=== PATIENT | male | born 1945 | race Caucasian/White ===

== ENCOUNTER → 2020-01-25 | Outpatient (CLI) | payer OTHER | LOC: SJCVC 14:56 | PROVIDERS: ATTEND Internal Medicine Cardiovascular Disease | DX: I25.10 Atherosclerotic heart disease of native coronary artery without angina pectoris (principal); I10 Essential (primary) hypertension; E78.00 Pure hypercholesterolemia, unspecified; I65.23 Occlusion and stenosis of bilateral carotid arteries; Z79.82 Long term (current) use of aspirin; Z79.899 Other long term (current) drug therapy; Z82.49 Family history of ischemic heart disease and other diseases of the circulatory system; Z87.891 Personal history of nicotine dependence ==

== ENCOUNTER → 2020-05-24 | Outpatient (CLI) | payer OTHER | LOC: SJCVCIMAG 09:21 | PROVIDERS: ATTEND Internal Medicine Cardiovascular Disease | DX: I08.8 Other rheumatic multiple valve diseases (principal); I25.10 Atherosclerotic heart disease of native coronary artery without angina pectoris; I10 Essential (primary) hypertension; E78.00 Pure hypercholesterolemia, unspecified; Z95.5 Presence of coronary angioplasty implant and graft; Z79.82 Long term (current) use of aspirin; Z79.899 Other long term (current) drug therapy; Z87.891 Personal history of nicotine dependence ==

== ENCOUNTER → 2021-01-02 | Outpatient (CLI) | payer OTHER | LOC: SJCVC 13:51 | PROVIDERS: ATTEND Internal Medicine Cardiovascular Disease | DX: R00.1 Bradycardia, unspecified (principal); I25.10 Atherosclerotic heart disease of native coronary artery without angina pectoris; I10 Essential (primary) hypertension; E78.00 Pure hypercholesterolemia, unspecified; I65.23 Occlusion and stenosis of bilateral carotid arteries; Z95.5 Presence of coronary angioplasty implant and graft; Z87.891 Personal history of nicotine dependence; Z72.89 Other problems related to lifestyle; Z79.82 Long term (current) use of aspirin; Z79.899 Other long term (current) drug therapy; Z88.0 Allergy status to penicillin ==

== ENCOUNTER 2021-02-02 14:45 | Emergency (ER) | payer OTHER ==
[~2021-02-02] VITALS: Ht 182.9 cm; Wt 79.4 kg
--- NOTE | ~2021-02-02 | EMS ---
[facility] [address] [place] [address] EMS Patient Care Report Name: OMERO VERA Room #: PRE M.R.#: [id number] Admission: Attend Phys: Discharge: Date of : 45 Report #: [id number] THIS REPORT FOR: //name// Report Transmitted: 02/02/2021 14:38 EMS Care Summary [place], [place]/[facility] Incident [id number] @ 02/02/2021 14:02 Incident Location [address] [place] [address] Patient OMERO VERA Male, 75 Years 1945 Patient Address [address] [place] [address] Patient History Cardiac - Stent, Patient Allergies Penicillin allergy, Patient Medications Rosuvastatin, Aspirin, Losartan, Bystolic, Chief Complaint Syncope Disposition Transported No Lights/[place] Dispatch Reason Unconscious/Fainting Transported To [facility] Narrative M36 dispatched on an unconscious. M36 arrived to golf driving range to find PT seated in chair with P45 at PT side. PT stated getting dizzy and passing out as chief complaint. PT stated he "felt dizzy, then sat down for a while. When I stood up I passed out and fell down." PT denied neck and back pain. PT assisted [facility] [address] [place] [address] EMS Patient Care Report Name: OMERO VERA Room #: PRE [facility].Sergio.#: [id number] Admission: Attend Phys: Discharge: Date of : 45 Report #: [id number] to stand and pivot to stretcher. PT alert and oriented. PT stated dehydration and feeling dizzy as additional complaints. PT secured with seatbelts. PT denied N/V/D, fever and shortness of breath. PT spoke in complete sentences without increased work of breathing. PT denied chest pain. PT vitals monitored in route including traffic monitor specialist. PT report given. PT scooted self to hospital bed. PT care and belongings transferred to ER staff at [facility] without incident. M36 placed back in service. Initial Vitals @14:25P: 62,R: 18,BP: 94/50,Pain: 110,GCS: 15,CO: 2,SpO2: 94,Revised Trauma: 12, @14:33P: 58,R: 16,BP: 88/48,Pain: 110,GCS: 15,CO: 2,SpO2: 94,Revised Trauma: 11,ME Suspected: false @14:42P: 48,R: 14,BP: 90/54,Pain: 1/10,GCS: 15,SpO2: 96,Revised Trauma: 12,ME Suspected: false @14:17P: 58,R: 18,BP: 70/50,Pain: 1/10,GCS: 15,Glucose: 138,CO: 3,SpO2: 97,Revised Trauma: 10,ME Suspected: false Assessments @14:33MENTAL:Person Oriented,Event Oriented,Place Oriented,Time Oriented,SKIN:Diaphoresis,Pale,HEENT:Head/Face: Swelling,LUNG SOUNDS:ABDOMEN:PELVIS//GI:EXTREMITIES:PULSE:Radial: 2+ Normal,NEURO:@14:42MENTAL:Person Oriented,Event Oriented,Time Oriented,Place Oriented,SKIN:Diaphoresis,HEENT:LUNG SOUNDS:ABDOMEN:PELVIS//GI:EXTREMITIES:PULSE:NEURO: Impression Syncope / Fainting Procedures @14:32ALS AssessmentResponse: UnchangedSucceeded@14:32Normal Saline (.9% NaCl) 510cc (20 ga) Site: Forearm-RightResponse: ImprovedSucceeded Timeline 14:01,Call Received 14:01,Dispatch Notified 14:02,Dispatched 14:02,En Route 14:12,On Scene 14:14,At Patient 14:17,BP: 70/50 M,PULSE: 58,RR: 18 R,SPO2: 97 Ox,ETCO2: ,B,PAIN: 1,GCS: 15, 14:25,BP: 94/50 M,PULSE: 62,RR: 18 R,SPO2: 94 Ox,ETCO2: ,BG: ,PAIN: 1,GCS: 15, 14:31,Depart Scene 14:32,ALS Assessment,Response: UnchangedSucceeded, [facility] [address] [place] [address] EMS Patient Care Report Name: OMERO VERA Room #: [facility]..#: [id number] Admission: Attend Phys: Discharge: Date of : 45 Report #: [id number] 14:32,Normal Saline (.9% NaCl) 510cc 20 ga Site: Forearm-Right,Response: ImprovedSucceeded, 14:33,BP: 88/48 M,PULSE: 58,RR: 16 R,SPO2: 94 Ox,ETCO2: ,BG: ,PAIN: 1,GCS: 15, 14:42,BP: 90/54 M,PULSE: 48,RR: 14 R,SPO2: 96 Ox,ETCO2: ,BG: ,PAIN: 1,GCS: 15, 14:52,At Destination 14:53,Call Closed Disclaimer v1.1 Copyright 2020 [employer] This EMS Care Summary contains data elements from the applicable legal record (which may be displayed differently). It is designed to provide pertinent information for the following purposes: continuity of care, clinical quality, and state data reporting. The complete legal record is available to ED staff and administrators of the receiving hospital in [employer] Patient Tracker. All data is provided "as is."
[2021-02-02] MEDS ORDERED: ASPIRIN EC81 M1 PO (14:55)
[2021-02-02] MEDS ORDERED: COZAAR 50 MG TA50 MG PO (14:55)
[2021-02-02] MEDS ORDERED: ROSUVASTATIN CA10 MG PO (14:56)
[2021-02-02] MEDS ORDERED: BYSTOLIC 5 MG5 MG PO (14:56)
[2021-02-02 15:11] LABS: ABSOLUTE NEUTROPHILS 5.9 thou/uL (1.4-8.2); BASOPHILS 0.3 % (0.0-2.0); EOSINOPHILS 0.7 % (0.0-3.0); HEMATOCRIT 41.5 % (42.0-52.0); HEMOGLOBIN 13.6 gm/dL (14.0-18.0); LYMPHOCYTES 17.6 % (24.0-44.0); MCH 29.6 pg (26.0-34.0); MCHC 32.8 g/dL (28.0-37.0); MCV 90.1 fL (80.0-100.0); MONOCYTES 4.6 % (1.0-8.0); PLATELET COUNT 187 thou/uL (150-400); POLYS 76.8 % (36.0-66.0); RDW 14.2 % (10.5-14.5); WBC 7.7 thou/uL (4.0-11.0)
[2021-02-02 15:20] LABS: CALCIUM 8.9 mg/dL (8.5-10.1); CREATININE 1.7 mg/dL (0.7-1.3); POTASSIUM 4.1 mmol/L (3.5-5.1)
[2021-02-02 15:31] LABS: ALBUMIN 3.8 g/dL (3.4-5.0); TOTAL BILIRUBIN 0.9 mg/dL (0.2-1.0); TOTAL PROTEIN 6.9 g/dL (6.4-8.2)
[2021-02-02 16:14] LABS: URINE BILIRUBIN NEGATIVE (Negative); URINE BLOOD NEGATIVE (Negative); URINE CLARITY CLEAR; URINE COLOR YELLOW; URINE GLUCOSE-RANDOM* NEGATIVE (Negative); URINE KETONES 1+ (Negative); URINE LEUKOCYTES-REFLEX NEGATIVE (Negative); URINE NITRITE-REFLEX NEGATIVE (Negative); URINE PROTEIN (DIPSTICK) TRACE (Negative); URINE SPECIFIC GRAVITY 1.025 (1.005-1.035); URINE UROBILINOGEN 0.2 E.U./dl (0.2-1.0)
[2021-02-02 17:02] VITALS: BP 133/64
--- NOTE | 2021-02-03 09:34 | EKG ---
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
== END 2021-02-02 17:34 | disposition home or self-care (01) ==
LOC: ER 14:45
PROVIDERS: Emergency Medicine
DX: R55 Syncope and collapse (principal); E86.0 Dehydration; Z79.82 Long term (current) use of aspirin; Z79.899 Other long term (current) drug therapy; Z88.0 Allergy status to penicillin; W07.XXXA Fall from chair, initial encounter; Y93.89 Activity, other specified; Y92.89 Other specified places as the place of occurrence of the external cause; Y99.8 Other external cause status

== ENCOUNTER → 2021-07-13 | Outpatient (CLI) | payer OTHER ==
[~2021-07-13] MED LIST: ASPIRIN EC81 M1 PO; BYSTOLIC 5 MG5 MG PO; COZAAR 50 MG TA50 MG PO; ROSUVASTATIN CA10 MG PO
== END ==
LOC: SJCVCIMAG 08:15
PROVIDERS: ATTEND Internal Medicine Cardiovascular Disease
DX: I65.23 Occlusion and stenosis of bilateral carotid arteries (principal); I08.8 Other rheumatic multiple valve diseases; I25.10 Atherosclerotic heart disease of native coronary artery without angina pectoris; I10 Essential (primary) hypertension; E78.5 Hyperlipidemia, unspecified; I47.2 Ventricular tachycardia; E78.00 Pure hypercholesterolemia, unspecified; Z79.82 Long term (current) use of aspirin; Z79.899 Other long term (current) drug therapy; F17.210 Nicotine dependence, cigarettes, uncomplicated; Z72.89 Other problems related to lifestyle; Z88.0 Allergy status to penicillin

== ENCOUNTER 2021-07-19 06:34 | Observation (INO) | payer OTHER ==
[~2021-07-19] VITALS: Ht 177.8 cm; Wt 77.6 kg
[2021-07-19] MEDS ORDERED: TOPROL XL25 MG PO (07:25)
[2021-07-19] MEDS ORDERED: VIAGRA100 MG PO (07:29)
[2021-07-19 07:35] VITALS: BP 150/74
--- NOTE | 2021-07-19 07:54 | EKG ---
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: [facility] : 1945 Requested By: Jamil Simms Order Number: [id number] MD: Jamil Simms Measurements Intervals [place] Rate: 68 P: 39 WV: 186 QRS: -9 QRSD: 97 T: -5 QT: 411 QTc: 438 Interpretive Statements Sinus rhythm Borderline T abnormalities, inferior leads Compared to ECG 02/02/2021 14:48:15 T-wave abnormality now present Electronically Signed On 07-19-2021 7:53:55 KNOCKOUT WORKER by Jamil Simms [email or web address] <ELECTRONICALLY SIGNED> By: Jamil Simms MD, [facility] 07/19/21 0753 5 5 Jamil Simms MD, FACC /EPI
--- NOTE | 2021-07-19 10:14 | NUR ---
NOTED REDNESS OF R LEG WITH HIVES AND RASH. DR. LOPEZ CONTACTED AND RECEIVED PHONE ORDERS FOR BENADRYL 25MG AND SOLUMEDROL 125MG. MEDS GIVEN
--- NOTE | 2021-07-19 10:35 | NUR ---
PHONE CONTACT WITH DR. LOPEZ GIVING UPDATE ON PT STATUS. NO FURTHER ORDERS REQUESTED OR RECEIVED.
--- NOTE | 2021-07-19 13:29 | NUR ---
REPORT TO [facility] CCU. ALL QUESTIONS ANSWERED. PT IN W/C TO CCU RM 209 WITHOUT INCIDENT.
[2021-07-19 13:50] VITALS: BP 147/95
[2021-07-19 15:00] VITALS: BP 147/85
--- NOTE | 2021-07-19 16:46 | CATHLAB ---
[facility] [place] [address] INVASIVE PROCEDURE REPORT Name: OMERO VERA Room #: 209-P ADM Mino Smith#: [id number] Admission: 07/19/21 Attend Phys: Gatito Rodríguez MD, Discharge: Date of : 45 Report #: [id number] THIS REPORT FOR: cc: Corina Duke MD, Karen A. MD Mancuso, Gerald M. 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 The Right Groin^ was infiltrated with 1% Lidocaine subcutaneous anesthesia. A PINNACLE 6FR Sheath #[id number] sheath was inserted into the RFA^. Coronary angiography was performed using coronary diagnostic catheters. The right coronary system was accessed and visualized with a JR4 catheter. The left coronary system was accessed and visualized with a JL4 catheter. The left ventricle was accessed and visualized with a PIGTAIL catheter. Left ventriculogram was performed in 30 degree projection. An aortogram of the abdominal aorta was performed. Closure device was deployed with a Fr MYNXGRIP 6/7F #[id number]. The patient tolerated the procedure well and there were no complications associated with the procedure. There was no hematoma. Intraoperative Conscious Sedation [facility] [address] [place] [address] INVASIVE PROCEDURE REPORT Name: OMERO Yumiko Room #: 209-P [facility] [place] ..#: [id number] Admission: 07/19/21 Attend Phys: Gatito Rodríguez, Discharge: Date of : 45 Report #: [id number] Sedation start time: 8:36 Case end Time: 9:35 Fentanyl 100 mcg Versed 4 mg Fluoro Time: 8.32 minutes Dose: DAP 7371.50 cGycm2 912 mGy Contrast Type and Amount: Omnipaque 218 ml Hemodynamics The aortic pressure is 116/59 mmHg with a mean of 82 mmHg. The left ventricular pressure is 110/4 mmHg with a mean of mmHg. The left ventricular end diastolic pressure is 10 mmHg. PCI Technique Lesion Anticoagulation was achieved with Heparin. Percutaneous coronary intervention was performed on the proximal right coronary artery. A LAUNCHER 6FR JR 4 #[id number] Guide Catheter was used to engage the RCA ostium. A Luge Wire .014 x 182CM #[id number] Interventional Guidewire was used to cross the lesion. BALLOON DILATION A Balloon catheter TREK OTW 2.5 X 12 #[id number] was inserted and inflated up to 10.00atm for 11seconds. STENT DEPLOYMENT A stent XIENCE SKYPOINT 3.0 X 12 was inserted and inflated up to 18.00atm for 30seconds. POST STENT DEPLOYMENT BALLOON DILATION A Balloon catheter TREK NC RX 3.5 X 8 #[id number] was inserted and inflated up to 14.00atm for 20seconds. Additional Inflation: 16.00atm for 21seconds. Additional Inflation: 16.00atm for 11seconds. Conclusion #1 Successful PTCA stent of the proximal RCA 80% clef-like lesion placement of a 3.0 x 12 skive point drug-eluting stent. Postdilated 3.6 mm MIO grade III flow. 40% mid RCA lesion large dominant vessel distally patent. #2 left main mildly calcified giving rise to LAD and circumflex. #3 LAD is an eccentric proximal lesion diagonal takeoff of 40%. Preserved vessel in the distal third has a 80 to 90% lesion filling a very small distal vessel stop short of the apex. Treat this medically. #4 circumflex OM previously placed stent has moderate restenosis filling a large OM branch. Widely patent. [facility] [address] [place] [address] INVASIVE PROCEDURE REPORT Name: OMERO VERA Room #: 209-P [facility] [place] M.R.#: [id number] Admission: 07/19/21 Attend Phys: Gatito Rodríguez, Discharge: Date of : 45 Report #: [id number] #5 normal left jugular size systolic function lower limits of normal EF 50 to 55%. #6 abdominal aortogram is mildly ectatic but no aneurysm formation. Recommendations and plan: Continue aggressive risk factor modification. Dual antiplatelet therapy initiated. Patient transferred to CCU follow post coronary stent protocol. Hemodynamically stable and pain-free. <ELECTRONICALLY SIGNED> By: Gatito Rodríguez MD, FACC 07/19/211645 45 45 Gatito Rodríguez MD, FACC /INF
--- NOTE | 2021-07-19 17:48 | NUR ---
PT TO THE UNIT POST CATH - STENT TO RCA. PT ORIENTED TO ROOM AND BEDSAPCE. ASSESSMENT CHARTED - GROIN SITE C/D/I. PT UP AD SANDRA IN ROOM. NO CO'S OF PAIN OR NASUEA. SUZAN DIET AND FLUIDS. PT RESTING COMFORTABLY WITH NO CO'S AT THE PRESENT TIME.
[2021-07-19 20:09] VITALS: BP 140/79
--- NOTE | 2021-07-19 21:31 | NUR ---
UPON INITIAL ASSESSMENT PATIENT STATES ANXIETY AND FEELING UNABLE TO SLEEP DUE TO WAKING UP IN A GASP WHEN CLOSE TO SLEEP. PROVIDER CONTACTED WITH ONE TIME MEDICATION GIVEN. NURSE TO CONTINUE TO ASSESS.
[2021-07-19 23:53] VITALS: BP 122/69
[2021-07-20 02:33] LABS: MCH 29.7 pg (26.0-34.0); MCHC 34.2 g/dL (28.0-37.0); MCV 86.7 fL (80.0-100.0); RBC 4.73 mil/uL (4.50-6.00); RDW 13.6 % (10.5-14.5); WBC 12.5 thou/uL (4.0-11.0)
[2021-07-20 02:57] LABS: ALBUMIN 3.4 g/dL (3.4-5.0); CALCIUM 8.9 mg/dL (8.5-10.1); CREATININE 1.1 mg/dL (0.7-1.3); POTASSIUM 4.2 mmol/L (3.5-5.1); TOTAL BILIRUBIN 0.6 mg/dL (0.2-1.0); TOTAL PROTEIN 6.6 g/dL (6.4-8.2)
[2021-07-20 03:37] VITALS: BP 128/78
[2021-07-20 07:45] VITALS: BP 134/82
[2021-07-20] MEDS ORDERED: EFFIENT10 MG PO (08:07)
[2021-07-20] MEDS ORDERED: CRESTOR20 MG PO (08:07)
--- NOTE | 2021-07-20 08:19 | EKG ---
[place] [address] [facility] [place] [address] ELECTROCARDIOGRAM REPORT Name: OMERO VERA Room #: 209-[facility] M.R.#: [id number] Admission: 07/19/21 Attend Phys: Gatito Rodríguez MD, Discharge: Date of : 45 Report #: [id number] [facility] Test Date: 2021-07-20 Test Time: 07:20:27 Pat Name: OMERO VERA Department: Room: 209 P Gender: M Clinical Technologist: RENE : 1945 Requested By: Betsy Byrne Order Number: [id number] MD: Jamil Simms Measurements Intervals [place] Rate: 86 P: 44 DE: 196 QRS: -13 QRSD: 96 T: -15 QT: 395 QTc: 473 Interpretive Statements Sinus rhythm Nonspecific ST and T wave abnormality Compared to ECG 07/19/2021 07:26:37 No significant changes Electronically Signed On 07-20-2021 8:19:03 AUDIO VIDEO TECHNICIAN by Jamil Simms [email or web address] <ELECTRONICALLY SIGNED> By: Jamil Simms MD, [facility] 07/20/21818 9 9 Jamil Simms MD, FACC /EPI
[2021-07-20] MEDS ORDERED: ASPIRIN325 PO (08:22)
[2021-07-20] MEDS ORDERED: CRESTOR10 MG PO (08:22)
[2021-07-20 11:37] VITALS: BP 128/78
--- NOTE | 2021-07-20 11:51 | NUR ---
ASSESSMENT CHARTED - MEDS PER MAR. MARES DIET AND FLUIDS. UP AD SANDRA IN ROOM - NO CO'S OF PAIN OR NASUEA. PT WITH IRREGULAR HR THIS AM - NOTED TO BE IN BIGEMENY AT TIMES - SR WITH PVC'S . DR HORVATH AWARE - PT HOME THIS AM - INSTRUCTION RE HOME MEDS/ CARE AND FOLLOW UP GIVEN TO PATIENT - STATED UNDERSTANDING ON INSTUCTION GIVEN. LEFT UNIT AMULATORY - HOME VIA PVT VEHICLE ACCOMP BY - NO CO'S AT TIME OF D/C.
== END 2021-07-20 11:54 | disposition home or self-care (01) ==
LOC: CATH 06:34 → 2N 09:55 → TBA 09:55 → CATH 11:02 → 2N 13:49
PROVIDERS: Nurse Practitioner Adult Health; ADMIT Internal Medicine Cardiovascular Disease; ATTEND Internal Medicine Cardiovascular Disease
DX: I25.10 Atherosclerotic heart disease of native coronary artery without angina pectoris (principal); I47.2 Ventricular tachycardia; I10 Essential (primary) hypertension; E78.5 Hyperlipidemia, unspecified; Z79.82 Long term (current) use of aspirin; Z79.899 Other long term (current) drug therapy; Z88.0 Allergy status to penicillin

== ENCOUNTER 2021-07-31 13:11 | Emergency (ER) | payer OTHER ==
[~2021-07-31] VITALS: Ht 177.8 cm; Wt 78.0 kg
[~2021-07-31 13:11] MED LIST changes: +ASPIRIN325 PO; +CRESTOR10 MG PO; +CRESTOR20 MG PO; +EFFIENT10 MG PO; +TOPROL XL25 MG PO; +VIAGRA100 MG PO
[2021-07-31 14:07] LABS: ABSOLUTE NEUTROPHILS 8.4 thou/uL (1.4-8.2); BASOPHILS 0.4 % (0.0-2.0); EOSINOPHILS 0.6 % (0.0-3.0); HEMATOCRIT 41.2 % (42.0-52.0); LYMPHOCYTES 10.2 % (24.0-44.0); MCH 29.6 pg (26.0-34.0); MCHC 33.9 g/dL (28.0-37.0); MCV 87.4 fL (80.0-100.0); MONOCYTES 4.4 % (1.0-8.0); PLATELET COUNT 194 thou/uL (150-400); POLYS 84.4 % (36.0-66.0); RBC 4.71 mil/uL (4.50-6.00); RDW 13.4 % (10.5-14.5)
[2021-07-31 14:24] LABS: APTT 26.6 Seconds (24.5-32.8); INR 0.99; PROTIME 10.8 Seconds (10.5-12.1)
[2021-07-31] MEDS ORDERED: DOXYCYCLINE 10100 MG PO (16:49)
[2021-07-31 17:12] VITALS: BP 166/80
== END 2021-07-31 17:13 | disposition home or self-care (01) ==
LOC: ER 13:11
PROVIDERS: Nurse Practitioner
DX: R04.0 Epistaxis (principal); I25.10 Atherosclerotic heart disease of native coronary artery without angina pectoris; E78.00 Pure hypercholesterolemia, unspecified; I10 Essential (primary) hypertension; Z79.82 Long term (current) use of aspirin; Z79.899 Other long term (current) drug therapy; Z88.0 Allergy status to penicillin